=== PATIENT | female | born 1945 | race Caucasian/White ===

== ENCOUNTER → 2017-01-29 | Outpatient (CLI) | payer MEDICARE ==
[~2017-01-29] MED LIST: ACETAMINOPHEN325 MG PO; ALBUTEROL MININEB NEB; ALBUTEROL17 G1 IH; ALBUTEROL17 GM NEB; CLEOCIN PO; COMBIVENT MININEB; LEVAQUIN750 MG PO; LITHIUM CARBON300 M1 PO; MELLARIL50 MG PO; OXYGEN; SPIRIVA18 MCG INH; TRYPSIN COMPLEX60 GM TP
--- NOTE | ~2017-01-29 | CT69 ---
[facility] A Service of [facility] & [facility] RADIOLOGY TEXT RESULTS PATIENT: DARRYN TABARES [facility] 47 UNIT #: [id number] AGE: [address]: Maryann Caro MD SEX: F ORDER DR: [id number] [facility] [address] [place], [place] [address] [id number] O MR#: [id number] [facility] #: [id number] NAME: DARRYN TABARES : 1945 SEX: F STUDY DATE/TIME: 01/29/2017 9:09 UNIT: [facility] ROOM: STUDY DESCRIPTION: CT Head W Contrast Attending Physician: Bayron Caro M.D. Referring Physician: Bayron Caro M.D. Ordering Physician: Bayron Caro M.D. Primary Care Physician: Diogo Caro M.D. MEDICAL IMAGING REPORT This report is preliminary unless electronic signature is present EXAM CT head 01/29/2017 HISTORY TIA. Dizziness for 2-[address] head performed skull base through vertex with intravenous contrast. Patient received 100 mL Isovue-[address] exam was performed with one or more of the following radiation dose reduction techniques: automatic exposure control, adjustment of mA and/or kV according to patient size, and iterative reconstruction. COMPARISON 07/03/2011 FINDINGS Study significantly degraded by streak/motion artifact. Images were repeated but repeat images also severely degraded. The brainstem shows no acute abnormality. The cerebellum and cerebral hemispheres show overall preservation of greenfield matter-white matter differentiation. There is no clear indication of intracranial hemorrhage. Ill-defined patchy white matter hypointensity in the left bourne radiata and internal capsule. More pronounced than on prior study and probably reflecting sequelae of chronic microvascular ischemia. Subacute component cannot be excluded. Finding best further evaluated with MRI if the patient can fully assist with the examination. There are periventricular and deep white matter tract probable sequelae of chronic microvascular ischemia as well. Midline structures are nondisplaced. Ventricles, cisterns and sulci within normal limits of size and contour overall. No parenchymal enhancing abnormality is suggested. No intra or extraaxial mass effect or abnormal intracranial fluid collection. The visualized intraorbital soft STS. [facility] A Service of [facility] & [facility] RADIOLOGY TEXT RESULTS PATIENT: DARRYN TABARES LOCATION: [facility] : 47 UNIT #: [id number] AGE: [address]: Maryann Caro MD SEX: F ORDER DR: tissues are unremarkable. Visualized paranasal sinuses and mastoid air cells show opacification of multiple bilateral mastoid air cells. There may be small mastoid air fluid levels bilaterally. Mastoid disease more pronounced than on prior study. Correlate with any clinical signs or symptoms of acute bilateral mastoiditis. IMPRESSION 1. The study is severely degraded by streak/motion artifact despite repetition of images. 2. Patchy ill-defined hypodensity in white matter of the left internal capsule and bourne radiata. More pronounced than in 2011. Probably reflecting chronic small vessel ischemic change. Subacute component cannot be entirely excluded. This finding is best further characterized with MRI if the patient can fully assist with the examination and if the patient is a candidate. 3. Periventricular and deep white matter tract probable sequelae of chronic microvascular ischemia. 4. No evidence of hemorrhage. No intracranial mass effect or abnormal fluid collection. No enhancing parenchymal lesion. 5. Opacification of multiple bilateral mastoid air cells with small bilateral air-fluid levels. Findings suggest bilateral acute mastoiditis. Correlate with patient's clinical presentation. Consider ENT consultation and assessment for management. Dictated by... Keon Rivera M.D. THIS IS AN ELECTRONICALLY VERIFIED REPORT Keon Rivera M.D. at 01/29/2017 7:48 PM [place] TD: 01/29/2017 15:40 JOB #: [id number] MEDICAL IMAGING REPORT Page 1 of 1 COPY
[2017-01-29 13:51] LABS: POC - CREATININE 0.59 mg/dL (0.44-1.03); POC - GFR >60.0 mL/min (>60)
== END | disposition home or self-care (01) ==
LOC: CCAT 08:39
PROVIDERS: Family Medicine
DX: G45.9 Transient cerebral ischemic attack, unspecified (principal); R90.82 White matter disease, unspecified; H74.8X3 Other specified disorders of middle ear and mastoid, bilateral
CPT/HCPCS: 70460; 82565; Q9967